=== PATIENT | male | born 1980 | race African-American/Black ===

== ENCOUNTER 2017-01-28 14:29 | Emergency (ER) | payer MEDICAID ==
[~2017-01-28] VITALS: Ht 170.2 cm; Wt 100.0 kg
[2017-01-28 18:35] VITALS: BP 164/106
== END 2017-01-28 19:59 | disposition home or self-care (01) ==
LOC: ER 14:29
DX: J34.0 Abscess, furuncle and carbuncle of nose (principal); F17.200 Nicotine dependence, unspecified, uncomplicated; Z90.49 Acquired absence of other specified parts of digestive tract
CPT/HCPCS: 99283

== ENCOUNTER 2018-02-13 14:36 | Emergency (ER) | payer MEDICAID ==
[~2018-02-13] VITALS: Ht 170.2 cm; Wt 94.0 kg
[2018-02-13 14:45] VITALS: BP 148/98
== END 2018-02-13 18:31 | disposition home or self-care (01) ==
LOC: ER 14:58
DX: M25.561 Pain in right knee (principal); F17.200 Nicotine dependence, unspecified, uncomplicated; Z90.49 Acquired absence of other specified parts of digestive tract
CPT/HCPCS: 99281

== ENCOUNTER 2018-05-26 11:56 | Emergency (ER) | payer MEDICAID ==
[~2018-05-26] VITALS: Ht 170.2 cm; Wt 95.0 kg
[2018-05-26] MEDS ORDERED: IBUPROFEN 800MG TABLET PO ONE (12:30)
[2018-05-26 12:37] VITALS: BP 175/113
== END 2018-05-26 12:58 | disposition home or self-care (01) ==
LOC: ER 11:56
DX: H66.93 Otitis media, unspecified, bilateral (principal); Z98.890 Other specified postprocedural states
CPT/HCPCS: 99283

== ENCOUNTER 2021-04-07 07:13 | Emergency (ER) | payer MEDICAID ==
[~2021-04-07] VITALS: Ht 170.2 cm; Wt 113.0 kg
[2021-04-07 07:38] VITALS: BP 151/105
[2021-04-07] MEDS ORDERED: FAMO20TA8 PO (07:58)
[2021-04-07] MEDS ORDERED: DIPH25CA83 PO (07:58)
[2021-04-07] MEDS ORDERED: P50 PO (07:58)
[2021-04-07] MEDS ORDERED: PREDNISONE 20MG TABLET PO ONE (08:00)
[2021-04-07] MEDS ORDERED: FAMOTIDINE 20MG TABLET PO ONE (08:00)
[2021-04-07] MEDS ORDERED: DIPHENHYDRAMINE 25MG CAPSULE PO ONE (08:00)
== END 2021-04-07 09:00 | disposition home or self-care (01) ==
LOC: ER 07:13
DX: T78.40XA Allergy, unspecified, initial encounter (principal); Z90.49 Acquired absence of other specified parts of digestive tract; X58.XXXA Exposure to other specified factors, initial encounter
CPT/HCPCS: 99284; J7512; Q0163